=== PATIENT | female | born 2000 | race Caucasian/White ===

== ENCOUNTER 2022-03-17 10:20 | Outpatient (CLI) | payer OTHER, SELFPAY ==
[2022-03-17 16:15] LABS: Free T4 Free Thyroxine* 1.07 ng/dL (0.70-1.85)
[2022-03-19 19:04] LABS: TPO Antibody 0.4 IU/mL (0.0-9.0); Thyroglobulin Antibody <0.9 IU/mL (0.0-4.0)
[2022-03-20 00:46] LABS: Free T3 3.1 pg/mL (2.5-4.3); Total T3 122 ng/dL (80-200)
== END 2022-03-17 10:21 | disposition home or self-care (01) ==
PROVIDERS: PCP Nurse Practitioner Family; Visit Provider Nurse Practitioner Family
DX: R53.83 Other fatigue (principal); R79.89 Other specified abnormal findings of blood chemistry
CPT/HCPCS: 36415; 84439; 84443; 84480; 84481; 86376; 86800

== ENCOUNTER 2023-05-25 08:56 | Outpatient (CLI) | payer OTHER, SELFPAY | END 2023-05-25 08:57 | disposition home or self-care (01) | PROVIDERS: PCP Nurse Practitioner Family; Visit Provider Nurse Practitioner Family | DX: R53.83 Other fatigue (principal); R79.89 Other specified abnormal findings of blood chemistry; M25.50 Pain in unspecified joint; R29.898 Other symptoms and signs involving the musculoskeletal system | CPT/HCPCS: 82306; 82607; 85025; 85651; 86039; 86140; 86200; 86431; 86618; 86812 ==

== ENCOUNTER 2025-01-08 10:43 | Outpatient (CLI) | payer BC, SELFPAY ==
[2025-01-08 14:09] LABS: Trichomonas No Trichomonas Seen (None Seen)
[2025-01-08 15:56] LABS: Chlamydia DNA Amplified* NOT DETECTED (No Detected); GC DNA Amplified* NOT DETECTED (No Detected)
[2025-01-12 12:03] LABS: Pap Test Digital Imaging Done
== END 2025-01-08 10:44 | disposition home or self-care (01) ==
PROVIDERS: PCP Nurse Practitioner Family; Visit Provider Nurse Practitioner Family
DX: Z00.00 Encounter for general adult medical examination without abnormal findings (principal); N89.8 Other specified noninflammatory disorders of vagina; M25.50 Pain in unspecified joint; R53.83 Other fatigue; R30.0 Dysuria; D50.9 Iron deficiency anemia, unspecified; D64.9 Anemia, unspecified; Z11.8 Encounter for screening for other infectious and parasitic diseases; Z12.4 Encounter for screening for malignant neoplasm of cervix; Z11.3 Encounter for screening for infections with a predominantly sexual mode of transmission; Z13.21 Encounter for screening for nutritional disorder
CPT/HCPCS: 82652; 84443; 85025; 85651; 86038; 86140; 86200; 86431; 86618; 86812; 87086; 87210; 87491; 87591; 88141; 88142; 88175

== ENCOUNTER 2025-01-19 09:17 | Outpatient (CLI) | payer BC, SELFPAY | END 2025-01-19 09:18 | disposition home or self-care (01) | PROVIDERS: PCP Nurse Practitioner Family; Visit Provider Nurse Practitioner Family | DX: D50.9 Iron deficiency anemia, unspecified (principal); D64.9 Anemia, unspecified; R11.0 Nausea; Z79.899 Other long term (current) drug therapy; Z13.810 Encounter for screening for upper gastrointestinal disorder | CPT/HCPCS: 80053; 82607; 82728; 82784; 83540; 83550; 85025; 85045; 86231; 86258; 86364 ==

== ENCOUNTER 2025-01-28 13:50 | Outpatient (CLI) | payer BC, SELFPAY ==
--- NOTE | 2025-01-28 14:00 | CRLHL7_ITS ---
For Patients: As a result of the Century Cures Act, medical imaging exams and procedure reports are released immediately into your electronic medical record. You may view this report before your referring provider. If you have questions, please contact your health care provider. CLINICAL HISTORY: Pelvic pain COMPARISON: None. TECHNIQUE: 2D sherman-scale ultrasound. In addition, color Doppler and spectral Doppler analysis was performed of the pelvis using a transabdominal and transvaginal approach. Transvaginal imaging performed to better visualize the endometrial stripe and ovaries. FINDINGS: The uterus measures 6.0 x 4.1 x 5.2 cm. Small nabothian cysts are incidentally noted. The endometrial lining appears normal and measures 4 mm in thickness. The right ovary measures 3.6 x 1.9 x 2.2 cm in size and the left ovary measures 3.2 x 1.7 x 2.3 cm. The ovaries demonstrate normal arterial and venous blood flow on color Doppler and spectral Doppler analysis. Mild pelvic free fluid is present. Collapsing left ovarian cyst measures 12 x 10 x 12 millimeters. IMPRESSION: Small collapsing left ovarian cyst with mild pelvic free fluid. No uterine fibroid or ovarian torsion. Dictated by Evangelist Castanon MD @ 01/28/2025 4:25:06 PM (Electronically Signed)
== END 2025-01-28 13:51 | disposition home or self-care (01) ==
LOC: US 13:51
PROVIDERS: PCP Nurse Practitioner Family; Visit Provider Nurse Practitioner Family
DX: R10.2 Pelvic and perineal pain (principal); N83.202 Unspecified ovarian cyst, left side; D50.9 Iron deficiency anemia, unspecified
CPT/HCPCS: 76830; 76856; 93976

== ENCOUNTER 2025-04-07 09:23 | Outpatient (CLI) | payer BC, SELFPAY | END 2025-04-07 09:24 | disposition home or self-care (01) | LOC: KYNREF 09:24 | PROVIDERS: PCP Nurse Practitioner Family; Visit Provider Nurse Practitioner Family | DX: E53.8 Deficiency of other specified B group vitamins (principal); D50.9 Iron deficiency anemia, unspecified | CPT/HCPCS: 82607; 82728; 83540; 83550; 85025 ==